=== PATIENT | female | born 1990 | race African-American/Black ===

== ENCOUNTER 2016-05-23 21:25 | Emergency (ER) | payer OTHER ==
[~2016-05-23] VITALS: Ht 170.2 cm; Wt 55.8 kg
[2016-05-23 22:09] VITALS: BP 130/66
[2016-05-23] MEDS ORDERED: PREDNISONE20 MG ORAL (22:11)
[2016-05-23] MEDS ORDERED: AZITHROMYCIN250 MG ORAL (22:11)
--- NOTE | 2016-05-23 22:11 | Emergency Room Report ---
History of Present Illness General Chief Complaint: Upper Respiratory Illness Source: Patient Present Illness HPI This is a 25-year-old female with no past medical history. She present with chief complaint of a cough. Onset for almost 3 weeks now. She was treated with albuterol without much relief. No fever or chills. Cough is nonproductive. Worse with laying flat. Worse with exertion. Denies any leg swelling. Also has congestion runny nose. Not a smoker. Allergies: Coded Allergies: No Known Allergies (Unverified , 05/23/16) Patient History Past Medical History: none, see triage record, old chart reviewed Past Surgical History: none Pertinent Family History: none Social History: Denies: smoking Last Menstrual Period: 05/02/16 Now: No Immunizations: other Reviewed Nursing Documentation: PMH: Agreed, PSxH: Agreed Nursing Documentation-PMH Past Medical History: No Stated History Review of Systems Eye: Denies: blurred vision, eye pain ENT: Denies: ear pain, nose congestion, throat swelling Respiratory: Reports: cough, Denies: shortness of breath Cardiovascular: Denies: chest pain, palpitations Gastrointestinal: Denies: abdominal pain, diarrhea, nausea, vomiting Musculoskeletal: Denies: back pain, joint pain Skin: Denies: rash Neurological: Denies: headache, numbness Endocrine: Denies: increased thirst, increased urine Hematologic/Lymphatic: Denies: easy bruising All Other Systems: negative except mentioned in HPI Physical Exam Vital Signs Date Time Temp Pulse Resp B/P Pulse Ox O2 Delivery O2 Flow Rate FiO2 05/23/16 21:59 98.2 92 16 130/66 98 Room Air vitals normal Sp02 EP Interpretation: reviewed, normal General Appearance: well appearing, no apparent distress, alert Head: normocephalic, atraumatic Eyes: bilateral eye EOMI, bilateral eye PERRL ENT: hearing grossly normal, normal pharynx Neck: full range of motion, supple, no meningismus Respiratory: chest non-tender, lungs clear, normal breath sounds Cardiovascular #1: regular rate, rhythm, no murmur Gastrointestinal: normal bowel sounds, non tender, no mass, no organomegaly, no bruit, non-distended Musculoskeletal: back normal, gait/station normal, normal range of motion Psychiatric: mood/affect normal Skin: warm/dry Medical Decision Making Diagnostic Impression: Primary Impression: Upper respiratory infection Qualified Codes: J06.9 - Acute upper respiratory infection, unspecified; B97.89 - Other viral agents as the cause of diseases classified elsewhere ER Course Patient presents with coughing and upper respiratory infection. Most likely has some bronchospasm now. She's arty any inhaler. Because of the duration of 3 weeks, we'll put on antibiotics. This will cover for atypical pneumonia and possibly pertussis. I see no onset PE, dissection, ACS to name a few. Also add steroid. Last Vital Signs Date Time Temp Pulse Resp B/P Pulse Ox O2 Delivery O2 Flow Rate FiO2 05/23/16 21:59 98.2 92 16 130/66 98 Room Air Status: improved Disposition: HOME, SELF-CARE Condition: Stable Scripts Azithromycin* (ZITHROMAX*) 250 Mg Tablet 250 MG ORAL DAILY, #6 TAB 0 Refills Take two tablets by mouth today, then take one tablet by mouth daily for four days Prov: STAN CABA M.D. 05/23/16 Prednisone* (PREDNISONE*) 20 Mg Tablet 40 MG ORAL DAILY, #10 TAB Prov: STAN CABA M.D. 05/23/16 Patient Instructions: Upper Respiratory Infection, Adult Additional Instructions: Followup with your Dr. in 7 days. Return if symptom worsen. STAN CABA M.D. May 23, 2016 22:11
[2016-05-23 22:21] VITALS: BP 130/66
== END 2016-05-23 22:27 | disposition home or self-care (01) ==
LOC: EMR 22:10
DX: J06.9 Acute upper respiratory infection, unspecified (principal)
CPT/HCPCS: 99284